=== PATIENT | female | born 1970 | race Two or more races ===

== ENCOUNTER 2023-07-09 19:39 | Emergency (ER) | payer MEDICAID ==
[2023-07-09] MEDS ORDERED: Labetalol 20 MG/4 ML Syringe IVPUSH ONE (20:26)
[2023-07-09 20:39] LABS: BASOPHILS ABSOLUTE AUTO 0.03 K/uL (0.00-0.10); BASOPHILS PERCENT AUTO 0.5 % (0.1-1.3); EOSINOPHILS ABSOLUTE AUTO 0.11 K/uL (0.00-0.40); EOSINOPHILS PERCENT AUTO 1.9 % (0.0-5.4); HEMATOCRIT 36.2 % (34.3-46.0); HEMOGLOBIN 13.1 g/dL (11.2-15.5); IMMATURE GRAN ABSOLUTE AUTO 0.01 K/uL (0.00-0.23); IMMATURE GRAN PERCENT AUTO 0.2 % (0.0-0.7); LYMPHOCYTES PERCENT AUTO 35.4 % (11.4-47.7); MEAN CORPUSCULAR HEMOGLOBIN 29.8 pg (31.6-35.5); MEAN CORPUSCULAR HGB CONC 36.2 g/dL (31.6-35.5); MEAN CORPUSCULAR VOLUME 82.3 fL (81.4-99.0); MONOCYTES ABSOLUTE AUTO 0.29 K/uL (0.20-0.90); MONOCYTES PERCENT AUTO 4.9 % (3.3-12.6); NEUTROPHILS ABSOLUTE AUTO 3.39 K/uL (1.0-7.6); NEUTROPHILS PERCENT AUTO 57.1 % (40.0-78.1); PLATELET COUNT,PLT 255 K/uL (130-375); WHITE BLOOD CELL COUNT,WBC 5.9 K/uL (3.2-11.0)
[2023-07-09 21:01] LABS: A/G RATIO 0.9 (1.2-2.2); ALANINE AMINOTRANSFERASE,ALT 26 U/L (12-78); ALBUMIN 3.9 g/dL (3.4-5.0); ALKALINE PHOSPHATASE 60 U/L (46-116); ANION GAP 9.1 mmol/L (5.0-14.0); ASPARTATE AMNIOTRANSFERASE,AST 17 U/L (15-37); BILIRUBIN TOTAL 0.3 mg/dL (0.2-1.0); BLOOD UREA NITROGEN,BUN 10 mg/dL (7-18); CALCIUM 9.1 mg/dL (8.5-10.1); CARBON DIOXIDE,CO2 27 mmol/L (21-32); CHLORIDE,CL 104 mmol/L (100-108); CREATININE 0.7 mg/dL (0.6-1.0); ESTIMATED GFR 102 mL/min (>60); GLUCOSE RANDOM 166 mg/dL (74-106); POTASSIUM,K 3.6 mmol/L (3.6-5.2); PROTEIN TOTAL,TP 8.1 g/dL (6.4-8.2); SODIUM,NA 140 mmol/L (140-148)
[2023-07-09] MEDS ORDERED: HYDROmorphone 0.5 MG/0.5 ML Syringe IVPUSH ONE (21:26)
[2023-07-09 22:28] LABS: APPEARANCE,URINE CLEAR (CLEAR); BILIRUBIN,URINE NEGATIVE (NEGATIVE); COLOR,URINE YELLOW (YELLOW); GLUCOSE,URINE NEGATIVE (NEGATIVE); KETONES,URINE NEGATIVE (NEGATIVE); LEUKOCYTE ESTERASE,URINE NEGATIVE (NEGATIVE); NITRITE,URINE NEGATIVE (NEGATIVE); OCCULT BLOOD,URINE NEGATIVE (NEGATIVE); PROTEIN,URINE NEGATIVE (NEGATIVE); UROBILINOGEN,URINE 0.2 EU/dL (0.2-1.0)
[2023-07-09 22:33] LABS: AMORPHOUS SEDIMENT,URINE NOT SEEN; BACTERIA,URINE RARE; EPITHELIAL CELLS,URINE RARE; MUCUS,URINE NOT SEEN; RBC,URINE 0-5 (0-5); WBC,URINE NOT SEEN (0-5)
== END 2023-07-09 23:21 | disposition home or self-care (01) ==
LOC: JP.ED 19:39
DX: I10 Essential (primary) hypertension (principal); Z79.899 Other long term (current) drug therapy; Z90.49 Acquired absence of other specified parts of digestive tract; Z90.710 Acquired absence of both cervix and uterus
CPT/HCPCS: 36415; 80053; 81001; 85025; 86140; 99283

== ENCOUNTER 2023-07-11 12:13 | Emergency (ER) | payer MEDICAID ==
[2023-07-11] MEDS: Aspirin 81 MG Tab.Chew PO ONE (13:19)
[2023-07-11] MEDS: Sodium Chloride 0.9% 1,000 ML IV ONE (13:19)
[2023-07-11] MEDS: Nitroglycerin 0.4 MG Tab.SL SL PRN (13:19)
[2023-07-11 13:24] LABS: BASE EXCESS VENOUS 1.4 mm/L; CARBOXYHEMOGLOBIN 2.6 % (0.0-1.6); METHEMOGLOBIN 0.8 %; O2 SATURATION VENOUS 73.8; OXYHEMOGLOBIN 71.3 %; PH,VENOUS 7.398 (7.350-7.450); PO2 VENOUS 39.3 mm/Hg; TOTAL HEMOGLOBIN 14.2 g/dL (12.0-16.0)
[2023-07-11 13:29] LABS: INR 1.1; PROTHROMBIN TIME 10.9 sec (9.2-10.6)
[2023-07-11 13:31] LABS: A/G RATIO 0.9 (1.2-2.2); ALANINE AMINOTRANSFERASE,ALT 39 U/L (12-78); ALBUMIN 4.4 g/dL (3.4-5.0); ALKALINE PHOSPHATASE 69 U/L (46-116); ANION GAP 11.5 mmol/L (5.0-14.0); ASPARTATE AMNIOTRANSFERASE,AST 24 U/L (15-37); BILIRUBIN TOTAL 0.7 mg/dL (0.2-1.0); BLOOD UREA NITROGEN,BUN 10 mg/dL (7-18); CALCIUM 9.9 mg/dL (8.5-10.1); CARBON DIOXIDE,CO2 26 mmol/L (21-32); CHLORIDE,CL 103 mmol/L (100-108); CREATININE 0.6 mg/dL (0.6-1.0); ESTIMATED GFR 106 mL/min (>60); GLUCOSE RANDOM 125 mg/dL (74-106); POTASSIUM,K 3.8 mmol/L (3.6-5.2); PRO B-TYPE NATRIUR PEPT,BNPPRO 51 pg/mL (5-125); PROTEIN TOTAL,TP 9.1 g/dL (6.4-8.2); SODIUM,NA 140 mmol/L (140-148)
[2023-07-11 13:33] LABS: TROPONIN I HIGH SENSITIVITY < 4.0 pg/mL (<=60.3)
[2023-07-11 13:33] LABS: APPEARANCE,URINE CLEAR (CLEAR); BILIRUBIN,URINE NEGATIVE (NEGATIVE); COLOR,URINE YELLOW (YELLOW); GLUCOSE,URINE NEGATIVE (NEGATIVE); KETONES,URINE NEGATIVE (NEGATIVE); LEUKOCYTE ESTERASE,URINE NEGATIVE (NEGATIVE); NITRITE,URINE NEGATIVE (NEGATIVE); OCCULT BLOOD,URINE NEGATIVE (NEGATIVE); PROTEIN,URINE NEGATIVE (NEGATIVE); UROBILINOGEN,URINE 0.2 EU/dL (0.2-1.0)
[2023-07-11 13:35] LABS: BACTERIA,URINE NOT SEEN; EPITHELIAL CELLS,URINE NOT SEEN; RBC,URINE NOT SEEN (0-5); WBC,URINE NOT SEEN (0-5)
[2023-07-11 13:38] LABS: WHITE BLOOD CELL COUNT,WBC 10.8 K/uL (3.2-11.0)
[2023-07-11 13:39] LABS: HEMOGLOBIN 15.2 g/dL (11.2-15.5)
[2023-07-11 13:42] LABS: PLATELET COUNT,PLT 297 K/uL (130-375)
[2023-07-11 13:43] LABS: AMPHETAMINES SCREEN, URINE NEGATIVE (NEGATIVE); BARBITURATE SCREEN,URINE NEGATIVE (NEGATIVE); BENZODIAZEPINES SCREEN,URINE NEGATIVE (NEGATIVE); METHADONE SCREEN, URINE NEGATIVE (NEGATIVE); METHAMPHETAMINES SCREEN, URINE NEGATIVE (NEGATIVE); OXYCODONE SCREEN,URINE NEGATIVE (NEGATIVE); PROPOXYPHENE SCREEN,URINE NEGATIVE (NEGATIVE); THC SCREEN,URINE 50 NG/ML NEGATIVE (NEGATIVE)
[2023-07-11 13:44] LABS: BAND ABSOLUTE MAN 0.11 K/uL; BAND PERCENT MAN 1 % (5-11); LYMPHOCYTES ABSOLUTE MAN 1.94 K/uL (0.8-3.3); LYMPHOCYTES PERCENT MAN 18 % (24-44); MONOCYTES ABSOLUTE MAN 0.54 K/uL (0.20-0.90); MONOCYTES PERCENT MAN 5 % (2-6); NEUTROPHILS ABSOLUTE MAN 8.21 K/uL (1.0-7.6); SEG NEUTROPHILS PERCENT MAN 76 % (36-66)
[2023-07-11 14:08] LABS: CORONAVIRUS COVID-19 NAA NEGATIVE (NEGATIVE); INFLUENZA A NAA NEGATIVE (NEGATIVE); INFLUENZA B NAA NEGATIVE (NEGATIVE); RESPIRATORY SYNCYTIAL VIR NAA NEGATIVE (NEGATIVE)
[2023-07-11] MEDS: Lisinopril 5 MG Tab PO ONE (14:12)
== END 2023-07-11 14:37 | disposition home or self-care (01) ==
LOC: JP.ED 12:13
DX: I10 Essential (primary) hypertension (principal); F41.9 Anxiety disorder, unspecified; K21.9 Gastro-esophageal reflux disease without esophagitis; Z90.49 Acquired absence of other specified parts of digestive tract; Z90.710 Acquired absence of both cervix and uterus
CPT/HCPCS: 0241U; 36415; 71045; 80053; 80305; 81001; 82803; 83605; 83880; 84484; 85025; 85379; 85610; 93005; 96360; 99285; A9270; J7030

== ENCOUNTER 2023-08-03 05:05 | Emergency (ER) | payer SELFPAY ==
[2023-08-03 06:00] LABS: BASOPHILS ABSOLUTE AUTO 0.03 K/uL (0.00-0.10); BASOPHILS PERCENT AUTO 0.6 % (0.1-1.3); HEMATOCRIT 38.8 % (34.3-46.0); HEMOGLOBIN 14.2 g/dL (11.2-15.5); IMMATURE GRAN PERCENT AUTO 0.2 % (0.0-0.7); LYMPHOCYTES ABSOLUTE AUTO 2.04 K/uL (0.8-3.3); LYMPHOCYTES PERCENT AUTO 40.9 % (11.4-47.7); MEAN CORPUSCULAR HEMOGLOBIN 29.8 pg (31.6-35.5); MEAN CORPUSCULAR HGB CONC 36.6 g/dL (31.6-35.5); MEAN CORPUSCULAR VOLUME 81.3 fL (81.4-99.0); NEUTROPHILS ABSOLUTE AUTO 2.51 K/uL (1.0-7.6); NEUTROPHILS PERCENT AUTO 50.3 % (40.0-78.1); PLATELET COUNT,PLT 257 K/uL (130-375); RED BLOOD CELL COUNT 4.77 M/uL (3.77-5.24)
[2023-08-03] MEDS: HYDROmorphone 0.5 MG/0.5 ML Syringe IVPUSH ONE (06:00)
[2023-08-03] MEDS: Ondansetron 4 MG/2 ML SDV IVPUSH ONE (06:01)
[2023-08-03 06:02] LABS: IMMATURE GRAN ABSOLUTE AUTO 0.01 K/uL (0.00-0.23)
[2023-08-03] MEDS: Sodium Chloride 0.9% 1,000 ML IV SCH (06:04)
[2023-08-03 06:19] LABS: A/G RATIO 0.8 (1.2-2.2); ALANINE AMINOTRANSFERASE,ALT 26 U/L (12-78); ALBUMIN 4.1 g/dL (3.4-5.0); ALKALINE PHOSPHATASE 65 U/L (46-116); ASPARTATE AMNIOTRANSFERASE,AST 19 U/L (15-37); BILIRUBIN TOTAL 0.8 mg/dL (0.2-1.0); BLOOD UREA NITROGEN,BUN 10 mg/dL (7-18); CARBON DIOXIDE,CO2 25 mmol/L (21-32); CHLORIDE,CL 101 mmol/L (100-108); CREATININE 0.7 mg/dL (0.6-1.0); EST CRCL DRUG DOSING (CG) 65.23 mL/min; ESTIMATED GFR 102 mL/min (>60); GLUCOSE RANDOM 137 mg/dL (74-106); POTASSIUM,K 3.2 mmol/L (3.6-5.2); PROTEIN TOTAL,TP 9.1 g/dL (6.4-8.2); SODIUM,NA 137 mmol/L (140-148)
[2023-08-03 06:23] LABS: ANION GAP 14.2 mmol/L (5.0-14.0)
[2023-08-03 06:33] LABS: CALCIUM 9.3 mg/dL (8.5-10.1)
[2023-08-03] MEDS: Ondansetron 4 MG Tab.DIS PO ONE (10:27)
== END 2023-08-03 10:34 | disposition home or self-care (01) ==
LOC: JP.ED 05:05
DX: K80.20 Calculus of gallbladder without cholecystitis without obstruction (principal); I10 Essential (primary) hypertension; Z90.710 Acquired absence of both cervix and uterus; Z79.899 Other long term (current) drug therapy; Z90.49 Acquired absence of other specified parts of digestive tract
CPT/HCPCS: 36415; 76705; 80053; 83690; 85025; 96361; 96374; 96375; 99284; J1170; J2405; J7030; Q0162

== ENCOUNTER 2023-08-06 06:27 | Day surgery (SDC) | payer MEDICAID ==
[2023-08-06] MEDS ORDERED: fentaNYL 250 MCG/5 ML SDV ONE (07:21)
[2023-08-06] MEDS ORDERED: Glycopyrrolate 0.2 MG/ML 5 ML MDV ONE (07:21)
[2023-08-06] MEDS ORDERED: Ondansetron 4 MG/2 ML SDV ONE (07:21)
[2023-08-06] MEDS ORDERED: Neostigmine Methylsulfate 10 MG/10 ML MDV ONE (07:21)
[2023-08-06] MEDS ORDERED: Rocuronium 50 MG/5 ML Vial ONE (07:21)
[2023-08-06] MEDS ORDERED: Dexamethasone 4 MG/ML SDV ONE (07:21)
[2023-08-06] MEDS ORDERED: Propofol 200 MG/20 ML SDV ONE (07:21)
[2023-08-06] MEDS: Sodium Chloride 0.9% 1,000 ML IV SCH (07:48)
[2023-08-06 07:51] LABS: HEMATOCRIT 38.6 % (34.3-46.0); HEMOGLOBIN 14.1 g/dL (11.2-15.5); MEAN CORPUSCULAR HEMOGLOBIN 29.7 pg (31.6-35.5); MEAN CORPUSCULAR HGB CONC 36.5 g/dL (31.6-35.5); MEAN CORPUSCULAR VOLUME 81.3 fL (81.4-99.0); RED BLOOD CELL COUNT 4.75 M/uL (3.77-5.24); WHITE BLOOD CELL COUNT,WBC 5.8 K/uL (3.2-11.0)
[2023-08-06] MEDS: Indocyanine Green 25 MG SDV INJECT ONE (08:02)
[2023-08-06 08:11] LABS: A/G RATIO 0.9 (1.2-2.2); ALANINE AMINOTRANSFERASE,ALT 46 U/L (12-78); ALKALINE PHOSPHATASE 66 U/L (46-116); ASPARTATE AMNIOTRANSFERASE,AST 25 U/L (15-37); BLOOD UREA NITROGEN,BUN 11 mg/dL (7-18); CALCIUM 9.3 mg/dL (8.5-10.1); CARBON DIOXIDE,CO2 25 mmol/L (21-32); CHLORIDE,CL 102 mmol/L (100-108); CREATININE 0.6 mg/dL (0.6-1.0); EST CRCL DRUG DOSING (CG) 87.64 mL/min; ESTIMATED GFR 106 mL/min (>60); GLUCOSE RANDOM 125 mg/dL (74-106); POTASSIUM,K 3.8 mmol/L (3.6-5.2); PROTEIN TOTAL,TP 8.7 g/dL (6.4-8.2); SODIUM,NA 138 mmol/L (140-148)
[2023-08-06 08:20] LABS: ANION GAP 14.8 mmol/L (5.0-14.0)
[2023-08-06] MEDS: ceFAZolin 2 GM in Premix Bag 1 BAG IV ONE (08:45)
[2023-08-06] MEDS ORDERED: Succinylcholine 200 MG/10 ML MDV ONE (08:49)
[2023-08-06] MEDS ORDERED: Ketorolac 30 MG/ML SDV ONE (09:09)
[2023-08-06] MEDS: metroNIDAZOLE/Normal Saline 500 MG in Premix Bag 1 BAG IV ONE (09:15)
[2023-08-06] MEDS ORDERED: Labetalol 20 MG/4 ML Syringe ONE (09:26)
[2023-08-06] MEDS: Bupivacaine 0.5% 50 ML MDV ONE (09:29)
[2023-08-06] MEDS: Lidocaine 1% with EPINEPHrine 1:100,000 50 ML MDV ONE (09:30)
== END 2023-08-06 14:06 | disposition home or self-care (01) ==
LOC: JP.SDS 06:27 → EDSTATUS 08-07 09:30
PROVIDERS: ATTEND Surgery
DX: K80.10 Calculus of gallbladder with chronic cholecystitis without obstruction (principal); I10 Essential (primary) hypertension; K21.9 Gastro-esophageal reflux disease without esophagitis; F32.A Depression, unspecified; F41.9 Anxiety disorder, unspecified
CPT/HCPCS: 00790; 36415; 47563; 80053; 85027; J0171; J0330; J0665; J0690; J1100; J1836; J1885; J1920; J2405; J2704; J2710; J2795; J3010; J3490; J7030

== ENCOUNTER 2023-08-11 19:43 | Emergency (ER) | payer MEDICAID ==
[2023-08-11 20:54] LABS: BASOPHILS ABSOLUTE AUTO 0.04 K/uL (0.00-0.10); BASOPHILS PERCENT AUTO 0.6 % (0.1-1.3); EOSINOPHILS ABSOLUTE AUTO 0.25 K/uL (0.00-0.40); EOSINOPHILS PERCENT AUTO 3.9 % (0.0-5.4); HEMATOCRIT 35.5 % (34.3-46.0); HEMOGLOBIN 13.1 g/dL (11.2-15.5); IMMATURE GRAN PERCENT AUTO 0.2 % (0.0-0.7); LYMPHOCYTES ABSOLUTE AUTO 1.69 K/uL (0.8-3.3); LYMPHOCYTES PERCENT AUTO 26.6 % (11.4-47.7); MEAN CORPUSCULAR HGB CONC 36.9 g/dL (31.6-35.5); MEAN CORPUSCULAR VOLUME 81.4 fL (81.4-99.0); MONOCYTES ABSOLUTE AUTO 0.35 K/uL (0.20-0.90); MONOCYTES PERCENT AUTO 5.5 % (3.3-12.6); NEUTROPHILS ABSOLUTE AUTO 4.01 K/uL (1.0-7.6); NEUTROPHILS PERCENT AUTO 63.2 % (40.0-78.1); PLATELET COUNT,PLT 236 K/uL (130-375); RED BLOOD CELL COUNT 4.36 M/uL (3.77-5.24); WHITE BLOOD CELL COUNT,WBC 6.4 K/uL (3.2-11.0)
[2023-08-11 20:55] LABS: IMMATURE GRAN ABSOLUTE AUTO 0.01 K/uL (0.00-0.23)
[2023-08-11 21:16] LABS: A/G RATIO 0.9 (1.2-2.2); ALANINE AMINOTRANSFERASE,ALT 37 U/L (12-78); ALBUMIN 3.7 g/dL (3.4-5.0); ALKALINE PHOSPHATASE 62 U/L (46-116); ASPARTATE AMNIOTRANSFERASE,AST 22 U/L (15-37); BILIRUBIN TOTAL 0.4 mg/dL (0.2-1.0); BLOOD UREA NITROGEN,BUN 10 mg/dL (7-18); CALCIUM 9.4 mg/dL (8.5-10.1); CARBON DIOXIDE,CO2 28 mmol/L (21-32); CHLORIDE,CL 103 mmol/L (100-108); CREATININE 0.6 mg/dL (0.6-1.0); ESTIMATED GFR 106 mL/min (>60); GLUCOSE RANDOM 132 mg/dL (74-106); POTASSIUM,K 3.9 mmol/L (3.6-5.2); SODIUM,NA 138 mmol/L (140-148)
[2023-08-11 21:17] LABS: ANION GAP 10.9 mmol/L (5.0-14.0)
[2023-08-11 21:42] LABS: APPEARANCE,URINE CLEAR (CLEAR); BILIRUBIN,URINE NEGATIVE (NEGATIVE); COLOR,URINE YELLOW (YELLOW); GLUCOSE,URINE NEGATIVE (NEGATIVE); KETONES,URINE NEGATIVE (NEGATIVE); LEUKOCYTE ESTERASE,URINE TRACE (NEGATIVE); NITRITE,URINE NEGATIVE (NEGATIVE); OCCULT BLOOD,URINE NEGATIVE (NEGATIVE); PROTEIN,URINE NEGATIVE (NEGATIVE); UROBILINOGEN,URINE 0.2 EU/dL (0.2-1.0)
[2023-08-11 21:49] LABS: AMORPHOUS SEDIMENT,URINE NOT SEEN; BACTERIA,URINE FEW; EPITHELIAL CELLS,URINE FEW; MUCUS,URINE RARE; RBC,URINE 0-5 (0-5)
== END 2023-08-11 22:11 | disposition home or self-care (01) ==
LOC: JP.ED 19:43
DX: F41.9 Anxiety disorder, unspecified (principal); I10 Essential (primary) hypertension; K21.9 Gastro-esophageal reflux disease without esophagitis; Z79.899 Other long term (current) drug therapy; Z90.49 Acquired absence of other specified parts of digestive tract
CPT/HCPCS: 36415; 80053; 81001; 83605; 84145; 85025; 99284

== ENCOUNTER 2023-11-20 00:46 | Emergency (ER) | payer MEDICAID, OTHER ==
[2023-11-20 01:17] LABS: BASOPHILS PERCENT AUTO 0.3 % (0.1-1.3); HEMATOCRIT 27.3 % (34.3-46.0); HEMOGLOBIN 10.2 g/dL (11.2-15.5); IMMATURE GRAN PERCENT AUTO 0.3 % (0.0-0.7); LYMPHOCYTES ABSOLUTE AUTO 1.88 K/uL (0.8-3.3); LYMPHOCYTES PERCENT AUTO 30.1 % (11.4-47.7); MEAN CORPUSCULAR HEMOGLOBIN 32.7 pg (31.6-35.5); MEAN CORPUSCULAR HGB CONC 37.4 g/dL (31.6-35.5); MEAN CORPUSCULAR VOLUME 87.5 fL (81.4-99.0); MONOCYTES ABSOLUTE AUTO 0.25 K/uL (0.20-0.90); NEUTROPHILS ABSOLUTE AUTO 4.07 K/uL (1.0-7.6); NEUTROPHILS PERCENT AUTO 65.3 % (40.0-78.1); PLATELET COUNT,PLT 138 K/uL (130-375); RED BLOOD CELL COUNT 3.12 M/uL (3.77-5.24); WHITE BLOOD CELL COUNT,WBC 6.2 K/uL (3.2-11.0)
[2023-11-20 01:21] LABS: BASOPHILS ABSOLUTE AUTO 0.02 K/uL (0.00-0.10); IMMATURE GRAN ABSOLUTE AUTO 0.02 K/uL (0.00-0.23)
[2023-11-20] MEDS: Alum Hydrox/Mag Hydrox/Simeth 15 ML, Lidocaine 2% 15 ML PO ONE (01:31)
[2023-11-20 01:40] LABS: BLOOD UREA NITROGEN,BUN 20 mg/dL (7-18); CALCIUM 8.9 mg/dL (8.5-10.1); CARBON DIOXIDE,CO2 26 mmol/L (21-32); CHLORIDE,CL 102 mmol/L (100-108); CREATININE 0.7 mg/dL (0.6-1.0); EST CRCL DRUG DOSING (CG) 65.23 mL/min; ESTIMATED GFR 102 mL/min (>60); GLUCOSE RANDOM 126 mg/dL (74-106); POTASSIUM,K 3.5 mmol/L (3.6-5.2); SODIUM,NA 138 mmol/L (140-148)
[2023-11-20 01:42] LABS: ANION GAP 13.5 mmol/L (5.0-14.0); TROPONIN I HIGH SENSITIVITY < 4.0 pg/mL (<=60.3)
== END 2023-11-20 02:19 | disposition home or self-care (01) ==
LOC: JP.ED 00:46
DX: K21.9 Gastro-esophageal reflux disease without esophagitis (principal); F41.9 Anxiety disorder, unspecified; I10 Essential (primary) hypertension; E66.9 Obesity, unspecified; Z90.49 Acquired absence of other specified parts of digestive tract; Z90.710 Acquired absence of both cervix and uterus; Z79.899 Other long term (current) drug therapy; Z68.29 Body mass index [BMI] 29.0-29.9, adult
CPT/HCPCS: 36415; 71045; 80048; 84484; 85025; 93005; 99285; A9270; 93010; 99283

== ENCOUNTER 2024-03-20 23:38 | Emergency (ER) | payer SELFPAY | END 2024-03-21 00:14 | disposition home or self-care (01) | LOC: JP.ED 23:38 | DX: I10 Essential (primary) hypertension (principal); F41.9 Anxiety disorder, unspecified; E66.9 Obesity, unspecified; Z68.37 Body mass index [BMI] 37.0-37.9, adult; Z90.49 Acquired absence of other specified parts of digestive tract; Z90.710 Acquired absence of both cervix and uterus; Z79.899 Other long term (current) drug therapy | CPT/HCPCS: 99283 ==